=== PATIENT | male | born 1965 | race African-American/Black ===

== ENCOUNTER 2021-11-11 09:33 | Emergency (ER) | payer OTHER ==
--- NOTE | ~2021-11-11 | EMS ---
[address] [address] EMS Patient Care Report Name: EILEEN MULLER Room #: PRE VANCE [place]#: [id number] Admission: Attend Phys: Discharge: Date of : 63 Report #: [id number] THIS REPORT FOR: //name// Report Transmitted: 11/11/2021 09:50 EMS Care Summary [place], [place]/[facility] Incident [id number] @ 11/11/2021 08:36 Incident Location [address] [place] [address] Patient EILEEN MULLER Male, 56 Years 1965 Patient Address [address] [place] [address] Patient History Cancer, Unspecified,Hyperlipidemia,Human Immunodeficiency Virus Disease (HIV/AIDS),Sleep Apnea,Type 2 Diabetes,Novel Coronavirus (COVID-19), Patient Allergies No known allergies, Patient Medications None Reported, Chief Complaint CARDIAC ARREST Disposition Transported Lights/[place] Dispatch Reason Cardiac Arrest/ Transported To [facility] Narrative PT FOUND LYING SUPINE ON BED IN UPSTAIRS BEDROOM OF HIS HOME. P41 ON SCENE. PTS FAMILY STATES THAT PT WAS LYING IN BED C/O OF TROUBLE BREATHING, STARTED TO "GRAB AT HIS THROAT" AND THEN BECAME UNRESPONSIVE. ON EMS ARRIVAL. ON EMS [address] [address] EMS Patient Care Report Name: EILEEN MULLER Room #: PRE Christel#: [id number] Admission: Attend Phys: Discharge: Date of : 63 Report #: [id number] ARRIVAL PT IS PULSESSLESS AND APNEIC. PTS BEDROOM IS UNABLE TO BE ACCESSED EASILY BY EMS DUE TO CLUTTER AND PTS WEIGHT. PT PLACED ON AUTOPULSE BUT DUE TO HIS SIZE AUTOPULSE IS INEFFECTIVE. PT PLACED ON LBBB AND MOVED OUT OF BEDROOM AND DOWNSTAIRS WHERE THERE WAS APPROPRIATE AMOUNT OF SPACE TO GIVE EFFECTIVE CARE. PT PLACED ON PADS, IGEL AND IO INSERTED NOTED W/O ISSUE. PT ABLE TO BE EASILY VENTILATED USING IGEL. IO IS EASILY FLUSHED AND MEDS CAN BE DELIVERED W/O IMPEDENCE. CPR PERFORMED ON SCENE FOR 20 MINS AFTER GETTING PT DOWNSTAIRS AND DECISION IS MADE BY EMS TO TRANSPORT PT DUE TO FAMILY CONCERNS. T08 CALLED FOR LIFTING ASSISTANCE. PT HAS NO VISIBLE TRAUMA. NO ADDITIONAL CHANGES NOTED ENROUTE. Initial Vitals @08:44P: 0,R: 0,Pain: 0/10,GCS: 3, @09:32GgRS0: 20, @09:10GCS: 3,EtCO2: 10, @09:24P: 0,R: 0,GCS: 3,EtCO2: 8, Assessments @08:45MENTAL:Unresponsive,SKIN:Other,HEENT:Eyes: Left: Non-Reactive,Eyes: Right: Non-Reactive,Head/Face: No Abnormalities,LUNG SOUNDS:ABDOMEN:PELVIS//GI:EXTREMITIES:PULSE:Radial: Absent,Carotid: Absent,NEURO:@09:23MENTAL:Unresponsive,SKIN:Other,HEENT:Eyes: Left: Non-Reactive,Eyes: Right: Non-Reactive,LUNG SOUNDS:ABDOMEN:PELVIS//GI:EXTREMITIES:PULSE:Carotid: Absent,Radial: Absent,NEURO: Impression Cardiac arrest Procedures @QC LAB TECHNICIAN Response: UnchangedSucceeded @08:58 iGEL Complications: None, Response: UnchangedSucceeded @09:01 Epinephrine 1:10 - 1 Milligrams (mg) - Intravenous (IV) Response: Unchanged @08:47 Response: UnchangedFailed @09:15 Stretcher Response: Unchanged @08:44 ALS Assessment Response: UnchangedSucceeded @08:59 Intraosseous - Normal Saline (.9% NaCl) 0cc (EZ-IO (Yellow 45mm)) Site: HA-Aasfq-Qiat Proximal Response: UnchangedSucceeded @09:17 Epinephrine 1:10 - 1 Milligrams (mg) - Intravenous (IV) Response: Unchanged @09:06 Epinephrine 1:10 - 1 Milligrams (mg) - Intravenous (IV) Response: Unchanged @09:12 Epinephrine 1:10 - 1 Milligrams (mg) - Intravenous (IV) Response: Unchanged @08:56 Oxygen FlowRate: 15 Device: Bag Valve Mask (BVM) Response: [facility] [address] [place] [address] EMS Patient Care Report Name: EILEEN MULLER Room #: PRE MRonal#: [id number] Admission: Attend Phys: Discharge: Date of : 63 Report #: [id number] UnchangedSucceeded @PTAGeneral Comments Response: Unchanged Timeline QC LAB TECHNICIAN,Response: UnchangedSucceeded, QC LAB TECHNICIAN,General Comments,Response: Unchanged 08:34,Call Received 08:34,Dispatch Notified 08:36,Dispatched 08:37,En Route 08:42,On Scene 08:44,At Patient 08:44,ALS Assessment,Response: UnchangedSucceeded, 08:44,BP: / M,PULSE: 0,RR: 0 R,SPO2: Ox,ETCO2: ,BG: ,PAIN: 0,GCS: 3, 08:47,Response: UnchangedFailed, 08:56,Oxygen FlowRate: 15 Device: Bag Valve Mask (BVM) Response: UnchangedSucceeded, 08:58,iGEL Complications: None,,Response: UnchangedSucceeded, 08:59,Intraosseous - Normal Saline (.9% NaCl) 0cc EZ-IO (Yellow 45mm) Site: UN-Kzpbl-Soaj Proximal,Response: UnchangedSucceeded, 09:00,BP: / M,PULSE: ,RR: R,SPO2: Ox,ETCO2: 20 ,BG: ,PAIN: ,GCS: , 09:01,Epinephrine 1:10 - 1 Milligrams (mg) - Intravenous (IV),Response: Unchanged 09:06,Epinephrine 1:10 - 1 Milligrams (mg) - Intravenous (IV),Response: Unchanged 09:10,BP: / M,PULSE: ,RR: R,SPO2: Ox,ETCO2: 10 ,BG: ,PAIN: ,GCS: 3, 09:12,Epinephrine 1:10 - 1 Milligrams (mg) - Intravenous (IV),Response: Unchanged 09:15,Stretcher,Response: Unchanged 09:16,Depart Scene 09:17,Epinephrine 1:10 - 1 Milligrams (mg) - Intravenous (IV),Response: Unchanged 09:24,BP: / M,PULSE: 0,RR: 0 R,SPO2: Ox,ETCO2: 8 ,BG: ,PAIN: ,GCS: 3, 09:24,At Destination 09:42,Call Closed Disclaimer v1.1 Copyright 2020 [employer] This EMS Care Summary contains data elements from the applicable legal record (which may be displayed differently). It is designed to provide pertinent information for the following purposes: continuity of care, clinical quality, and state data reporting. The complete legal record is available to ED staff and administrators of the receiving hospital in [facility]'s Patient Tracker. All data is provided "as is."
--- NOTE | ~2021-11-11 | EMS ---
[address] [address] EMS Patient Care Report Name: EILEEN MULLER Room #: PRE VANCE MRonal#: [id number] Admission: Attend Phys: Discharge: Date of : 63 Report #: [id number] THIS REPORT FOR: //name// Report Transmitted: 11/11/2021 10:54 EMS Care Summary [place], [place]/[facility] Incident [id number] @ 11/11/2021 08:36 Incident Location [address] [place] [address] Patient EILEEN MULLER Male, 56 Years 1965 Patient Address [address] [place] [address] Patient History Cancer, Unspecified,Hyperlipidemia,Human Immunodeficiency Virus Disease (HIV/AIDS),Sleep Apnea,Type 2 Diabetes,Novel Coronavirus (COVID-19), Patient Allergies No known allergies, Patient Medications None Reported, Chief Complaint CARDIAC ARREST Disposition Transported Lights/[place] Dispatch Reason Cardiac Arrest/ Transported To [facility] Narrative PT FOUND LYING SUPINE ON BED IN UPSTAIRS BEDROOM OF HIS HOME. P41 ON SCENE. PTS FAMILY STATES THAT PT WAS LYING IN BED C/O OF TROUBLE BREATHING, STARTED TO "GRAB AT HIS THROAT" AND THEN BECAME UNRESPONSIVE. ON EMS ARRIVAL. ON EMS [address] [address] EMS Patient Care Report Name: EILEEN MULLER Room #: PRE Christel#: [id number] Admission: Attend Phys: Discharge: Date of : 63 Report #: [id number] ARRIVAL PT IS PULSESSLESS AND APNEIC. PTS BEDROOM IS UNABLE TO BE ACCESSED EASILY BY EMS DUE TO CLUTTER AND PTS WEIGHT. PT PLACED ON AUTOPULSE BUT DUE TO HIS SIZE AUTOPULSE IS INEFFECTIVE. PT PLACED ON LBBB AND MOVED OUT OF BEDROOM AND DOWNSTAIRS WHERE THERE WAS APPROPRIATE AMOUNT OF SPACE TO GIVE EFFECTIVE CARE. PT PLACED ON PADS, IGEL AND IO INSERTED NOTED W/O ISSUE. PT ABLE TO BE EASILY VENTILATED USING IGEL. IO IS EASILY FLUSHED AND MEDS CAN BE DELIVERED W/O IMPEDENCE. CPR PERFORMED ON SCENE FOR 20 MINS AFTER GETTING PT DOWNSTAIRS AND DECISION IS MADE BY EMS TO TRANSPORT PT DUE TO FAMILY CONCERNS. T08 CALLED FOR LIFTING ASSISTANCE. PT HAS NO VISIBLE TRAUMA. NO ADDITIONAL CHANGES NOTED ENROUTE. Initial Vitals @08:44P: 0,R: 0,Pain: 0/10,GCS: 3, @09:71ZoFG9: 20, @09:10GCS: 3,EtCO2: 10, @09:24P: 0,R: 0,GCS: 3,EtCO2: 8, Assessments @08:45MENTAL:Unresponsive,SKIN:Other,HEENT:Eyes: Left: Non-Reactive,Eyes: Right: Non-Reactive,Head/Face: No Abnormalities,LUNG SOUNDS:ABDOMEN:PELVIS//GI:EXTREMITIES:PULSE:Radial: Absent,Carotid: Absent,NEURO:@09:23MENTAL:Unresponsive,SKIN:Other,HEENT:Eyes: Left: Non-Reactive,Eyes: Right: Non-Reactive,LUNG SOUNDS:ABDOMEN:PELVIS//GI:EXTREMITIES:PULSE:Carotid: Absent,Radial: Absent,NEURO: Impression Cardiac arrest Procedures @AGRICULTURAL PURCHASING AGENT Response: UnchangedSucceeded @08:58 iGEL Complications: None, Response: UnchangedSucceeded @09:01 Epinephrine 1:10 - 1 Milligrams (mg) - Intravenous (IV) Response: Unchanged @08:47 Response: UnchangedFailed @09:15 Stretcher Response: Unchanged @08:44 ALS Assessment Response: UnchangedSucceeded @08:59 Intraosseous - Normal Saline (.9% NaCl) 0cc (EZ-IO (Yellow 45mm)) Site: AV-Xygrg-Dbdv Proximal Response: UnchangedSucceeded @09:17 Epinephrine 1:10 - 1 Milligrams (mg) - Intravenous (IV) Response: Unchanged @09:06 Epinephrine 1:10 - 1 Milligrams (mg) - Intravenous (IV) Response: Unchanged @09:12 Epinephrine 1:10 - 1 Milligrams (mg) - Intravenous (IV) Response: Unchanged @08:56 Oxygen FlowRate: 15 Device: Bag Valve Mask (BVM) Response: [facility] [address] [place] [address] EMS Patient Care Report Name: EILEEN MULLER Room #: PRE Christel#: [id number] Admission: Attend Phys: Discharge: Date of : 63 Report #: [id number] UnchangedSucceeded @PTAGeneral Comments Response: Unchanged Timeline AGRICULTURAL PURCHASING AGENT,Response: UnchangedSucceeded, AGRICULTURAL PURCHASING AGENT,General Comments,Response: Unchanged 08:34,Call Received 08:34,Dispatch Notified 08:36,Dispatched 08:37,En Route 08:42,On Scene 08:44,At Patient 08:44,ALS Assessment,Response: UnchangedSucceeded, 08:44,BP: / M,PULSE: 0,RR: 0 R,SPO2: Ox,ETCO2: ,BG: ,PAIN: 0,GCS: 3, 08:47,Response: UnchangedFailed, 08:56,Oxygen FlowRate: 15 Device: Bag Valve Mask (BVM) Response: UnchangedSucceeded, 08:58,iGEL Complications: None,,Response: UnchangedSucceeded, 08:59,Intraosseous - Normal Saline (.9% NaCl) 0cc EZ-IO (Yellow 45mm) Site: XW-Oicoi-Akwq Proximal,Response: UnchangedSucceeded, 09:00,BP: / M,PULSE: ,RR: R,SPO2: Ox,ETCO2: 20 ,BG: ,PAIN: ,GCS: , 09:01,Epinephrine 1:10 - 1 Milligrams (mg) - Intravenous (IV),Response: Unchanged 09:06,Epinephrine 1:10 - 1 Milligrams (mg) - Intravenous (IV),Response: Unchanged 09:10,BP: / M,PULSE: ,RR: R,SPO2: Ox,ETCO2: 10 ,BG: ,PAIN: ,GCS: 3, 09:12,Epinephrine 1:10 - 1 Milligrams (mg) - Intravenous (IV),Response: Unchanged 09:15,Stretcher,Response: Unchanged 09:16,Depart Scene 09:17,Epinephrine 1:10 - 1 Milligrams (mg) - Intravenous (IV),Response: Unchanged 09:24,BP: / M,PULSE: 0,RR: 0 R,SPO2: Ox,ETCO2: 8 ,BG: ,PAIN: ,GCS: 3, 09:24,At Destination 09:42,Call Closed Disclaimer v1.1 Copyright 2020 [employer] This EMS Care Summary contains data elements from the applicable legal record (which may be displayed differently). It is designed to provide pertinent information for the following purposes: continuity of care, clinical quality, and state data reporting. The complete legal record is available to ED staff and administrators of the receiving hospital in [facility]'s Patient Tracker. All data is provided "as is."
== END 2021-11-11 12:07 ==
LOC: ER 09:33
DX: U07.1 COVID-19 (principal); I46.8 Cardiac arrest due to other underlying condition